=== PATIENT | female | born 1930 | race Caucasian/White ===

== ENCOUNTER 2017-07-08 09:22 | Inpatient (IN) | payer MEDICARE, OTHER ==
[~2017-07-08] VITALS: Ht 165.1 cm; Wt 65.9 kg
--- NOTE | 2017-07-08 09:30 | NUR ---
PT IS IN ROOM #1A. DR PROCTOR EVALUATED THE PT.
[2017-07-08] MEDS ORDERED: SULF1TAB47 PO (09:57)
[2017-07-08] MEDS ORDERED: ERGO2000 PO (09:57)
[2017-07-08] MEDS ORDERED: AZIT250T6 PO (09:57)
[2017-07-08] MEDS ORDERED: SUCR1TAB PO (09:57)
[2017-07-08] MEDS ORDERED: SULF1TAB48 PO (09:57)
[2017-07-08] MEDS ORDERED: TRAZ-144 PO (09:57)
[2017-07-08] MEDS ORDERED: INSU100V10 SQ (09:57)
[2017-07-08] MEDS ORDERED: LOSA25TA3 PO (10:04)
[2017-07-08] MEDS ORDERED: DENO60DI SQ (10:04)
[2017-07-08] MEDS ORDERED: CODE118S2 PO (10:04)
[2017-07-08] MEDS ORDERED: ASPI81TA31 PO (10:04)
[2017-07-08] MEDS ORDERED: ESCI10TA PO (10:04)
[2017-07-08] MEDS ORDERED: ONDA4TAB5 PO (10:04)
[2017-07-08 10:06] LABS: BASOPHILS % (AUTO) 0.1 % (0.0-2.0); EOSINOPHILS % (AUTO) 0.2 % (0.0-7.0); HEMATOCRIT 28.6 % (37-47); HEMOGLOBIN 9.3 G/DL (12.0-16.0); LYMPHOCYTES # (AUTO) 0.7 K/UL (0.8-4.8); LYMPHOCYTES % (AUTO) 25.1 % (20.5-51.5); MEAN CORPUSCULAR HEMOGLOBIN 31.7 UUG (27.0-31.0); MEAN CORPUSCULAR HGB CONC 33 g/dL (32.0-37.0); MEAN CORPUSCULAR VOLUME 97.1 FL (81.0-99.0); MONOCYTES # (AUTO) 0.5 K/UL (0.1-1.30); MONOCYTES % (AUTO) 15.8 % (0.0-11.0); NEUTROPHILS # (AUTO) 1.7 K/UL (1.8-8.9); NEUTROPHILS % (AUTO) 58.8 % (38.5-71.5); PLATELET COUNT (AUTO) 139 K/UL (150-450); RED BLOOD CELL COUNT(AUTO) 2.95 MIL/UL (4.2-5.4); WHITE BLOOD COUNT (AUTO) 2.9 K/UL (4.0-11.2)
[2017-07-08 10:13] LABS: CARBON DIOXIDE 19 mmol/L (21-32); CHLORIDE 98 mmol/L (98-107); CREATININE 1.7 mg/dL (0.6-1.3); GLUCOSE 160 mg/dL (74-106); POTASSIUM 5.1 mmol/L (3.5-5.1); UREA NITROGEN, BLOOD 25 mg/dL (7-18)
--- NOTE | 2017-07-08 10:15 | NUR ---
PT IS RESTING IN BED COMFORTABLY. PT DENIES PAIN. NO SOB. NO N/V. RELATIVES AT THE BEDTIME. CONTINUE TO MONITOR THE PT.
[2017-07-08 10:18] LABS: ALANINE AMINOTRANSFERASE 22 U/L (14-59); ALKALINE PHOSPHATASE 62 U/L (50-136); ASPARTATE AMINOTRANSFERASE 34 U/L (15-37); BILIRUBIN,DIRECT 0.2 mg/dL (0.0-0.2); BILIRUBIN,TOTAL 0.8 mg/dL (0.2-1.0); TOTAL PROTEIN, SERUM 8.4 g/dL (6.4-8.2)
[2017-07-08 10:31] LABS: LYMPHOCYTES % (MANUAL) 25 % (20-40); MONOCYTES % (MANUAL) 14 % (2-10); NEUTROPHILS % (MANUAL) 61 % (42-75)
[2017-07-08 10:50] LABS: *BLOOD, URINE 3+ (NEGATIVE); *CLARITY,URINE TURBID (CLEAR); *COLOR,URINE YELLOW (YELLOW); *KETONES,URINE 1+ (NEGATIVE); *UROBILINOGEN,URINE 0.2 E.U./dl (NORMAL); LEUKOCYTE ESTERASE ,URINE 3+ (NEGATIVE); NITRITE, URINE NEGATIVE (NEGATIVE); UGLUCOSE NEGATIVE (NEGATIVE)
[2017-07-08 10:57] LABS: *BILIRUBIN,URIN NEGATIVE (NEGATIVE)
[2017-07-08 11:00] LABS: *PROTEIN,URINE 3+ (NEGATIVE)
[2017-07-08 11:16] LABS: BACTERIA,URINE MANY /HPF (NONE SEEN); SQUAMOUS EPITHELIAL CELL,UR FEW /HPF (NONE SEEN); WBC,URINE TNTC /HPF (0-3)
[2017-07-08] MEDS ORDERED: PANTOPRAZOLE SODIUM 40 MG VIAL IV ONE (12:00)
[2017-07-08] MEDS ORDERED: IV NORMAL SALINE 250 ML BAG IV ONE (12:00)
[2017-07-08] MEDS ORDERED: IV NS 1000 ML 1,000 ML IV ONE (12:00)
[2017-07-08] MEDS ORDERED: CEFTRIAXONE 1 G in IV DEXTROSE 5% 50 ML IV ONE (12:00)
[2017-07-08] MEDS ORDERED: ASPIRIN 325 MG TABLET PO ONE (12:00)
--- NOTE | 2017-07-08 12:06 | NUR ---
PAGE EPPIC FOR ADMISSION. WAITING FOR KASSANDRA NIELSON DNP TO CALL BACK
[2017-07-08] MEDS ORDERED: CEFTRIAXONE 1 G VIAL ONE (12:14)
[2017-07-08] MEDS ORDERED: PANTOPRAZOLE SODIUM 40 MG VIAL ONE (12:14)
[2017-07-08] MEDS ORDERED: ASPIRIN 325 MG TABLET ONE (12:15)
[2017-07-08] MEDS ORDERED: LEVOFLOXACIN 500 MG/D5W 100ML PIGGYBACK IV ONE (13:45)
[2017-07-08] MEDS ORDERED: LEVOFLOXACIN 500 MG/D5W 100 ML ONE (13:52)
--- NOTE | 2017-07-08 14:00 | NUR ---
PT WAS TRANSFERED TO TELEMETRY ROOM #217. REPORT WAS GIVEN TO ALUMNI COORDINATOR.
--- NOTE | 2017-07-08 14:50 | NUR ---
received from ER per inga awake alert and oriented x 2 for c/o nausea and generalized weakness per granddaughter, tele applied SR 90's, denies of pain, no nausea, routine admission care rendered, initial assessment done, oriented to bed controls and call button controls, fall risk initiated, bed alarm on
[2017-07-08 14:51] VITALS: BP 125/64
--- NOTE | 2017-07-08 16:00 | NUR ---
TO Ct dept for CT of head with granddaughter
[2017-07-08] MEDS ORDERED: ONDANSETRON 4 MG/2 ML VIAL IV PRN (17:00)
[2017-07-08] MEDS ORDERED: ZOLPIDEM 5 MG TABLET PO PRN (17:00)
[2017-07-08] MEDS: ONDANSETRON HCL 4 MG TABLET PO SCH ×2 (17:00→21:51)
[2017-07-08] MEDS ORDERED: Z GUARD REMEDY PASTE 57 GM TUBE TOP PRN (17:00)
[2017-07-08] MEDS ORDERED: MAGNESIUM HYDROXIDE 30 ML LIQUID UDC PO PRN (17:00)
--- NOTE | 2017-07-08 17:26 | NUR ---
CLINICAL PHARMACY NOTE:VANCOMYCIN DOSING Request for vancomycin dosing on 87 y/o female 5'5" 130lbs for suspected infection Temp 99.1 BUN 25 Scr 1.7 WBC 2.9 also receiving Zosyn UA+ Will dose by level due to poor renal function.Vancomycin 1gm ivpb today. Random vancomycin level ordered for tomorrow evening. Will continue to monitor.
--- NOTE | 2017-07-08 17:30 | NUR ---
Lakhwinder here and saw pt- spoke to family at length - Pt for consult width Dr Valle- informed of elevated troponin of 3.111 and will be started on heparin drip per protocol by Kandy Borges- okayed by hooker up Dr Valle.
[2017-07-08] MEDS: IV NS 1000 ML 1,000 ML IV PRN (17:41)
--- NOTE | 2017-07-08 17:50 | NUR ---
critical value of troponin 4.309- reported to Kandy Borges
[2017-07-08] MEDS: SUCRALFATE 1 G TABLET PO SCH ×2 (18:16→21:05)
[2017-07-08] MEDS: PIPERACILLIN/TAZOBACTAM/D5W 2.25 G in PREMIXED 1 EACH IV SCH (18:28)
[2017-07-08] MEDS: HEPARIN/D5W DRIP 500 ML IV PRN (18:40)
--- NOTE | 2017-07-08 18:40 | NUR ---
heparin drip started at 885units/hr (17.7 ml/hr) via iv pump- will monitor closely for any bleeding, no distress noted, call light within reach, tele SR 90's
[2017-07-08 20:00] VITALS: BP 106/54
[2017-07-08] MEDS ORDERED: VANCOMYCIN IV 1 G in PREMIXED 0 EACH IV ONE (20:00)
--- NOTE | 2017-07-08 20:00 | NUR ---
RECEIVED PATIENT ALERT,ORIENTED,ON O2 2L/M VIA N/C,CONTINUE HEPARIN DRIP AT 885 UNITS/HR,FAMILY AT BEDSIDE,DENIES CHEST PAIN.NO NAUSEA NOTED.
[2017-07-08] MEDS: TRAZODONE 50 MG TABLET PO SCH (21:05)
[2017-07-08] MEDS: INSULIN DETEMIR 300 UNIT/3 ML CARTRIDGE SQ SCH (21:10)
[2017-07-08] MEDS: ACETAMINOPHEN 325 MG TABLET PO PRN (21:50)
[2017-07-08] MEDS ORDERED: PIPERACILLIN/TAZOBACTAM/D5W 3.375 G in PREMIXED 1 EACH IV SCH (22:00)
--- NOTE | 2017-07-08 23:00 | NUR ---
TROPONIN 3.747 TRENDING DOWN,PATIENT C/O NAUSEA WHEN BEING TURN,ZOFRAN 4 MG PO GIVEN FOR NAUSEA WITH IMPROVED.
[2017-07-09 00:20] VITALS: BP 109/50
[2017-07-09] MEDS: PIPERACILLIN/TAZOBACTAM/D5W 2.25 G in PREMIXED 1 EACH IV SCH ×5 (00:28→23:14)
--- NOTE | 2017-07-09 01:30 | NUR ---
QBH=804.9,HOLD HEPARIN DRIP FOR 1 HR AND DECREASE DRIP TO 685 PER PROTOCOL.PATIENT SLEEP INTERMITTENTLY,NSR ON TELE MONITOR.
--- NOTE | 2017-07-09 02:30 | NUR ---
restarted heparin drip at 685 units/hr per protocol,patient asleep no s/s of bleeding,nsr on monitor,continue closely monitor.
[2017-07-09 04:00] VITALS: BP 112/52
--- NOTE | 2017-07-09 06:00 | NUR ---
PATIENT SLEEP INTERMITTENTLY,AFEBRILE,NO SOB NOTED,SR ON TELE,CONTINUE HEPARIN DRIP AT 685 UNITS/HR,NEXT PTT DUE AT 0730.
[2017-07-09] MEDS: PANTOPRAZOLE SODIUM 40 MG TABLET.DR PO SCH (06:17)
[2017-07-09 06:49] LABS: ALANINE AMINOTRANSFERASE 20 U/L (14-59); ALKALINE PHOSPHATASE 44 U/L (50-136); ASPARTATE AMINOTRANSFERASE 36 U/L (15-37); BILIRUBIN,TOTAL 0.6 mg/dL (0.2-1.0); CARBON DIOXIDE 18 mmol/L (21-32); CHLORIDE 103 mmol/L (98-107); CHOLESTEROL 115 mg/dL (<200); CREATININE 1.6 mg/dL (0.6-1.3); GLUCOSE 68 mg/dL (74-106); HDL CHOLESTEROL 58 mg/dL (40-60); MAGNESIUM 1.8 mg/dL (1.8-2.4); POTASSIUM 4.4 mmol/L (3.5-5.1); TOTAL PROTEIN, SERUM 6.9 g/dL (6.4-8.2); TRIGLYCERIDES 75 MG/DL (30-150); UREA NITROGEN, BLOOD 26 mg/dL (7-18)
[2017-07-09 06:55] LABS: BASOPHILS % (AUTO) 0.2 % (0.0-2.0); LYMPHOCYTES # (AUTO) 1.5 K/UL (0.8-4.8); LYMPHOCYTES % (AUTO) 44.1 % (20.5-51.5); MEAN CORPUSCULAR HEMOGLOBIN 32.1 UUG (27.0-31.0); MEAN CORPUSCULAR HGB CONC 32 g/dL (32.0-37.0); MEAN CORPUSCULAR VOLUME 99.4 FL (81.0-99.0); MONOCYTES # (AUTO) 0.5 K/UL (0.1-1.30); MONOCYTES % (AUTO) 14.4 % (0.0-11.0); NEUTROPHILS # (AUTO) 1.3 K/UL (1.8-8.9); NEUTROPHILS % (AUTO) 40.3 % (38.5-71.5); PLATELET COUNT (AUTO) 112 K/UL (150-450); WHITE BLOOD COUNT (AUTO) 3.3 K/UL (4.0-11.2)
[2017-07-09 06:57] LABS: HEMATOCRIT 24.8 % (37-47); THYROID STIMULATING HORMONE 1.319 mIU/mL (0.358-3.740)
[2017-07-09] MEDS: SUCRALFATE 1 G TABLET PO SCH ×4 (08:28→20:59)
[2017-07-09] MEDS: ASPIRIN 81 MG TAB.CHEW PO SCH (08:28)
[2017-07-09] MEDS: ONDANSETRON HCL 4 MG TABLET PO SCH ×2 (08:28→17:56)
[2017-07-09] MEDS: ESCITALOPRAM OXALATE 10 MG TABLET PO SCH (08:28)
[2017-07-09] MEDS: LOSARTAN POTASSIUM 25 MG TABLET PO SCH (08:31)
[2017-07-09] MEDS ORDERED: HEPARIN SODIUM,PORCINE 5,000 UNITS/ML VIAL IV PRN (09:00)
--- NOTE | 2017-07-09 09:02 | NUR ---
PT AWAKE IN BED, EATING BREAKFAST. HEP DRIP RUNNING, LAB CAME TO DRAW FOR 0730 PTT, WAITING FOR RESULTS. MORNING MEDICATIONS GIVEN, CALL LIGHT IN REACH, WILL CONTINUE TO MONITOR
--- NOTE | 2017-07-09 09:44 | NUR ---
PTT >150.0. PER PROTOCOL, HEPARIN DRIP WILL BE HELD FOR 60 MIN AND RESUMED AT 200UNITS/HR LOWER THAN PREVIOUS RATE. ANOTHER PTT LAB ORDERED FOR 1530
[2017-07-09] MEDS: HEPARIN/D5W DRIP 500 ML IV PRN (10:47)
--- NOTE | 2017-07-09 12:00 | NUR ---
Lab called gram and cocci cluster in blood cultures. aware.
[2017-07-09 12:07] VITALS: BP 103/47
[2017-07-09] MEDS: IV NS 1000 ML 1,000 ML IV PRN (12:12)
--- NOTE | 2017-07-09 13:57 | NUR ---
Clinical Pharmacy Note: Vancomycin Dosing per Pharmacy Subjective: Vancomycin IV to continue on this 87 yo patient for sepsis, UTI. ht 5' 5'' wt 130 lb Objective: BUN 26/Scr 1.6 WBC 3.3 Temperature 98 Vanco random level : pending (to be drawn at 1800) Assessment/Plan: Due to elevated srcr & advanced age, will continue to dose by fall off level. Patient received vanco 1gm IVPB x1 on 07/08 at 2030. Vanco random level has been scheduled for today at 1800. Pharmacy shall review the level for further dosing. Will follow daily. Addendum: 07/09/17 at 1906 by DOREEN ALFONSO ADM LEVEL CAME BACK @ 11.5 WILL GIVE ANOTHER VANCO 1GM X 1 AND WILL ORDER LEVEL FOR TOMORROW @ 1900
[2017-07-09 15:47] VITALS: BP 107/43
--- NOTE | 2017-07-09 18:17 | NUR ---
PT AWAKE IN BED WATCHING TV, IN NO ACUTE DISTRESS. DAUGHTER AT BEDSIDE. NO CHANGES NOTED THROUGHOUT SHIFT, CALL LIGHT IN REACH
[2017-07-09] MEDS ORDERED: VANCOMYCIN IV 1 G in PREMIXED 0 EACH IV ONE (19:30)
[2017-07-09 20:11] VITALS: BP 112/42
[2017-07-09] MEDS: ATORVASTATIN 20 MG TABLET PO SCH (20:59)
[2017-07-09] MEDS: TRAZODONE 50 MG TABLET PO SCH (20:59)
--- NOTE | 2017-07-09 21:00 | NUR ---
RECEIVED PATIENT LAYING IN BED. HOB ELEVATED. NO ACUTE DISTRESS NOTED. TELE SR. O2 2L NC. SKIN INTACT. SAFETY INITIATED. CALL LIGHT WITHIN REACH. WILL REVIEW MEDICATIONS AND WILL GIVE MEDS ORDERED. WILL CONTINUE TO MONITOR.
[2017-07-09] MEDS: METOPROLOL TARTRATE 25 MG TABLET PO SCH (21:05)
[2017-07-09] MEDS ORDERED: INSULIN DETEMIR 300 UNIT/3 ML CARTRIDGE SQ ONE (22:07)
[2017-07-09] MEDS: INSULIN DETEMIR 300 UNIT/3 ML CARTRIDGE SQ SCH (22:10)
[2017-07-09] MEDS: ACETAMINOPHEN 325 MG TABLET PO PRN (23:14)
[2017-07-10 00:12] VITALS: BP 110/47
[2017-07-10 04:00] VITALS: BP 111/61
[2017-07-10] MEDS: IV NS 1000 ML 1,000 ML IV PRN ×2 (04:59→17:18)
[2017-07-10] MEDS: PIPERACILLIN/TAZOBACTAM/D5W 2.25 G in PREMIXED 1 EACH IV SCH ×3 (05:04→17:18)
[2017-07-10] MEDS: PANTOPRAZOLE SODIUM 40 MG TABLET.DR PO SCH (06:18)
--- NOTE | 2017-07-10 06:44 | NUR ---
NO CHANGES T/O SHIFT. ALL NEEDS MET. NO ACUTE DISTRESS NOTED. TELE SR. ALL MEDS GIVEN ORDERED.TURN AND REPOSITIONED Q2H. FIRST STEP MATTRESS ORDERED. STOOL OBTAINED, SENT TO LAB. ALL NEEDS MET.
--- NOTE | 2017-07-10 06:45 | NUR ---
NO CHANGES T/O SHIFT. ALL NEEDS MET. NO ACUTE DISTRESS NOTED. COMFORT AND SAFETY MAINTAINED T/O SHIFT. SENIOR CARE PROVIDED. ABDUCTOR IN PLACE. DVT PUMPS IN PLACE. NEURO CHECK. STRONG PEDAL PULSES.
--- NOTE | 2017-07-10 07:30 | NUR ---
RESTING IN BED ANXIOUS C/O GENERALIZED DISCOMFORT SR ON MONITOR. CLOSELY MONITORED Addendum: 07/10/17 at 1232 by COURTNEY RDZ RN CHARTED ERROR
--- NOTE | 2017-07-10 07:30 | NUR ---
RESTING COMFORTABLY, NO SIGNS OF PAIN OR DISTRESS, SR ON MONITOR AFEBRILE. NO REACTION FROM IV ANTIBIOTIC
[2017-07-10] MEDS: SUCRALFATE 1 G TABLET PO SCH ×4 (08:22→20:42)
[2017-07-10] MEDS: ESCITALOPRAM OXALATE 10 MG TABLET PO SCH (08:23)
[2017-07-10] MEDS: ASPIRIN 81 MG TAB.CHEW PO SCH (08:23)
[2017-07-10] MEDS: ONDANSETRON HCL 4 MG TABLET PO SCH ×2 (08:23→17:17)
[2017-07-10] MEDS: METOPROLOL TARTRATE 25 MG TABLET PO SCH ×2 (08:23→20:43)
[2017-07-10] MEDS: LOSARTAN POTASSIUM 25 MG TABLET PO SCH (08:23)
[2017-07-10 08:51] LABS: BASOPHILS % (AUTO) 0.3 % (0.0-2.0); EOSINOPHILS % (AUTO) 1.2 % (0.0-7.0); HEMATOCRIT 25.2 % (37-47); HEMOGLOBIN 8.2 G/DL (12.0-16.0); LYMPHOCYTES # (AUTO) 1.1 K/UL (0.8-4.8); MEAN CORPUSCULAR HEMOGLOBIN 32.6 UUG (27.0-31.0); MEAN CORPUSCULAR HGB CONC 33 g/dL (32.0-37.0); MEAN CORPUSCULAR VOLUME 100.3 FL (81.0-99.0); MONOCYTES # (AUTO) 0.4 K/UL (0.1-1.30); MONOCYTES % (AUTO) 14.8 % (0.0-11.0); NEUTROPHILS % (AUTO) 37.7 % (38.5-71.5); PLATELET COUNT (AUTO) 106 K/UL (150-450); RED BLOOD CELL COUNT(AUTO) 2.51 MIL/UL (4.2-5.4); WHITE BLOOD COUNT (AUTO) 2.6 K/UL (4.0-11.2)
[2017-07-10 09:09] LABS: ALANINE AMINOTRANSFERASE 17 U/L (14-59); ALKALINE PHOSPHATASE 39 U/L (50-136); ASPARTATE AMINOTRANSFERASE 33 U/L (15-37); BILIRUBIN,TOTAL 0.4 mg/dL (0.2-1.0); CARBON DIOXIDE 18 mmol/L (21-32); CHLORIDE 108 mmol/L (98-107); CREATINE KINASE, TOTAL 143 U/L (26-192); CREATININE 1.5 mg/dL (0.6-1.3); GLUCOSE 88 mg/dL (74-106); MAGNESIUM 1.7 mg/dL (1.8-2.4); PHOSPHOROUS 2.6 mg/dL (2.5-4.9); POTASSIUM 4.2 mmol/L (3.5-5.1); TOTAL PROTEIN, SERUM 6.8 g/dL (6.4-8.2); UREA NITROGEN, BLOOD 19 mg/dL (7-18)
[2017-07-10 10:33] LABS: BAND % (MANUAL) 1 % (0-10); EOSINOPHILS % (MANUAL) 2 % (0-8); LYMPHOCYTES % (MANUAL) 49 % (20-40); MONOCYTES % (MANUAL) 8 % (2-10); NEUTROPHILS % (MANUAL) 40 % (42-75)
[2017-07-10 11:21] VITALS: BP 107/55
[2017-07-10 11:47] LABS: *OCCULT BLOOD STOOL NEGATIVE (NEGATIVE)
--- NOTE | 2017-07-10 12:29 | NUR ---
DENIES SOB OR CHEST PAIN, SR ON MONITOR
[2017-07-10 15:18] VITALS: BP 113/48
--- NOTE | 2017-07-10 15:36 | NUR ---
Clinical Pharmacy Note: Vancomycin Dosing per Pharmacy Subjective: Vancomycin IV to continue on this 87 yo patient for sepsis, UTI. ht 5' 5'' wt 130 lb Objective: BUN 19/Scr 1.5 WBC 2.6 Temperature 98 Vanco random level : pending (to be drawn at 1900) Assessment/Plan: Due to elevated srcr & advanced age, will continue to dose by fall off level. Patient received vanco 1gm IVPB x1 on 07/09 at 1999. Vanco random level has been scheduled for today at 1900. Pharmacy shall review the level for further dosing. Will follow daily. Addendum: 07/10/17 at 2102 by QIAN BALDERAS RANDOM LEVEL 18.8 GIVE 1GM VANCOMYCIN SAMUEL
[2017-07-10 15:51] LABS: *BILIRUBIN,URIN NEGATIVE (NEGATIVE); *BLOOD, URINE Trace-lysed (NEGATIVE); *CLARITY,URINE CLEAR (CLEAR); *COLOR,URINE YELLOW (YELLOW); *KETONES,URINE NEGATIVE (NEGATIVE); *PROTEIN,URINE TRACE (NEGATIVE); *UROBILINOGEN,URINE 0.2 E.U./dl (NORMAL); LEUKOCYTE ESTERASE ,URINE TRACE (NEGATIVE); NITRITE, URINE NEGATIVE (NEGATIVE); PH,URINE 5.5 (5.0-8.0); UGLUCOSE NEGATIVE (NEGATIVE)
[2017-07-10 16:16] LABS: *CREATININE,URINE 44.1 mg/dL (30-125); *URINE TOTAL PROTEIN RANDOM 28.6 mg/dL (<150/24HR)
[2017-07-10 16:37] LABS: BACTERIA,URINE FEW /HPF (NONE SEEN); RBC,URINE 0-3 /HPF (0-3); SQUAMOUS EPITHELIAL CELL,UR FEW /HPF (NONE SEEN)
--- NOTE | 2017-07-10 18:02 | NUR ---
CONTINUE IVF AND IV ANTIBIOTIC FOR UTI NO ADVERSE REACTION
--- NOTE | 2017-07-10 19:30 | NUR ---
RECEIVED PATIENT LAYING COMFORTABLY IN BED. NO ACUTE DISTRESS NOTED. SAFETY INITIATED. CALL LIGHT WITHIN REACH. IVF INFUSING AT 75 MS/HR ON THE RIGHT HAND. 02 2L NC. TELE SR. WILL CONTINUE TO MONITOR.
[2017-07-10 20:00] VITALS: BP 120/51
[2017-07-10] MEDS: LACTOBACILLUS RHAMNOSUS GG 1 EACH CAPSULE PO SCH (20:42)
[2017-07-10] MEDS: TRAZODONE 50 MG TABLET PO SCH (20:42)
[2017-07-10] MEDS: ATORVASTATIN 20 MG TABLET PO SCH (20:42)
[2017-07-10] MEDS: INSULIN DETEMIR 300 UNIT/3 ML CARTRIDGE SQ SCH (20:51)
[2017-07-10] MEDS ORDERED: VANCOMYCIN IV 1 G in PREMIXED 0 EACH IV ONE (21:00)
[2017-07-10] MEDS ORDERED: VANCOMYCIN 1000 MG VIAL ONE (21:43)
--- NOTE | 2017-07-10 22:22 | NUR ---
VANCOMYCIN WAS GIVEN LATE BECAUSE ORDERED WAS PUT IN PASS 2100, PHARMACY IS CLOSE. FAXED ORDER TO NURSING OFFICE. NURSING OFFICE BROUGHT IT UP 2200. INFUSING NOW. NO ADVERSE REACTION.
[2017-07-11] VITALS: BP 117/47
[2017-07-11] MEDS: PIPERACILLIN/TAZOBACTAM/D5W 2.25 G in PREMIXED 1 EACH IV SCH ×3 (01:11→11:57)
[2017-07-11 04:00] VITALS: BP 128/48
[2017-07-11] MEDS: PANTOPRAZOLE SODIUM 40 MG TABLET.DR PO SCH (06:03)
--- NOTE | 2017-07-11 06:38 | NUR ---
NO CHANGES T/O THE SHIFT. NO ACUTE DISTRESS NOTED. PATIENT SLEPT INTERMITTENTLY T/O SHIFT. O2 2L NC. TURN AND REPOSITIONED Q2H. ALERT AND ORIENTED BUT FORGETFUL. IV HL ON THE RIGHT HAD PATENT AND INTACT.ALL NEEDS MET. TELE SR WITH PVC COUPLETS.WILL CONTINUE TO MONITOR.
--- NOTE | 2017-07-11 07:30 | NUR ---
RESTING IN BED WITH EYES CLOSED NO SIGNS OF PAIN OR DISTRESS WITH 2L NC SAT AT 96% SR ON MONITOR
[2017-07-11] MEDS: ASPIRIN 81 MG TAB.CHEW PO SCH (08:17)
[2017-07-11] MEDS: LACTOBACILLUS RHAMNOSUS GG 1 EACH CAPSULE PO SCH ×2 (08:18→20:45)
[2017-07-11] MEDS: ESCITALOPRAM OXALATE 10 MG TABLET PO SCH (08:18)
[2017-07-11] MEDS: CARVEDILOL 3.125 MG TABLET PO SCH ×2 (08:18→17:12)
[2017-07-11] MEDS: SUCRALFATE 1 G TABLET PO SCH ×4 (08:18→20:45)
[2017-07-11] MEDS: ONDANSETRON HCL 4 MG TABLET PO SCH ×2 (08:18→17:12)
[2017-07-11] MEDS: LOSARTAN POTASSIUM 25 MG TABLET PO SCH (08:18)
--- NOTE | 2017-07-11 10:00 | NUR ---
SEEN BY PHYSICAL THERAPY SEE NOTES
[2017-07-11 11:26] LABS: HEMATOCRIT 25.3 % (37-47); HEMOGLOBIN 8.4 G/DL (12.0-16.0); MEAN CORPUSCULAR HGB CONC 34 g/dL (32.0-37.0); MEAN CORPUSCULAR VOLUME 98.5 FL (81.0-99.0); PLATELET COUNT (AUTO) 96 K/UL (150-450); RED BLOOD CELL COUNT(AUTO) 2.56 MIL/UL (4.2-5.4); WHITE BLOOD COUNT (AUTO) 2.9 K/UL (4.0-11.2)
[2017-07-11 11:41] VITALS: BP 114/57
[2017-07-11 11:53] LABS: CARBON DIOXIDE 15 mmol/L (21-32); CHLORIDE 109 mmol/L (98-107); CREATININE 1.3 mg/dL (0.6-1.3); GLUCOSE 191 mg/dL (74-106); MAGNESIUM 1.6 mg/dL (1.8-2.4); PHOSPHOROUS 1.7 mg/dL (2.5-4.9); UREA NITROGEN, BLOOD 12 mg/dL (7-18)
[2017-07-11] MEDS: MAGNESIUM SULFATE/D5W 100 ML IV SCH ×4 (12:38→16:06)
[2017-07-11 13:12] LABS: LYMPHOCYTES % (MANUAL) 44 % (20-40); MONOCYTES % (MANUAL) 4 % (2-10); NEUTROPHILS % (MANUAL) 52 % (42-75)
--- NOTE | 2017-07-11 13:16 | NUR ---
CONTINUE CURRENT TX PLAN, SEEN BY DR JORDAN CHANGED STATUS TO MEDS[facility]
[2017-07-11] MEDS ORDERED: NEUTRA PHOS PACKET PO ONE (15:30)
[2017-07-11 15:36] VITALS: BP 107/54
--- NOTE | 2017-07-11 18:13 | NUR ---
DC PLAN INITIATED FOR ACUTE REHAB
[2017-07-11 19:00] VITALS: BP 97/66
--- NOTE | 2017-07-11 19:30 | NUR ---
received patient laying comfortably in bed. family at bedside. patient is alert and oriented but forgetful. no acute distress noted. 02 2l nc. patient is bed bound. air mattress in place. will review meds and will administer as ordered. safety initiated. call light with reach. will continue to monitor.
[2017-07-11 20:00] VITALS: BP 128/54
[2017-07-11] MEDS: TRAZODONE 50 MG TABLET PO SCH (20:45)
[2017-07-11] MEDS: ATORVASTATIN 20 MG TABLET PO SCH (20:45)
[2017-07-11] MEDS: INSULIN DETEMIR 300 UNIT/3 ML CARTRIDGE SQ SCH (20:47)
--- NOTE | 2017-07-11 22:40 | NUR ---
LAB PERSONNEL INFORMED ME OF TROP LEVEL 0.552. ORDER WAS PLACED BUT WAS NOT RAN UNTIL NOW. RELEASING IT.
[2017-07-11] MEDS: CEFAZOLIN 1 G in PREMIXED 1 EACH IV SCH (22:48)
[2017-07-12] VITALS (12 sets, daily range): BP systolic 115–138; BP diastolic 52–74
--- NOTE | 2017-07-12 00:15 | NUR ---
CONDUCTED MY HOURLY ROUNDING AND FOUND PATIENT IN DISTRESS. C/O SOB. BP WAS WNL, O2 AT 97 ON 2L NC, HR ELEVATED AT 101, RESP WAS ELEVATED AT 36 WITH LABORED BREATHING. ALERTED CHARGE NURSE DARREN, CALLED RT AND PAGED ON-CALL MD DR. VELEZ. SBAR GIVEN OVER THE PHONE WITH DR. VELEZ. ORDERED 10 MG LASIX IVP ONCE. READ BACK PROTOCOL FOLLOWED. PATIENT WAS PUT BACK ON TELE. WILL CONTINUE TO MONITOR. NO IVF INFUSING.
[2017-07-12] MEDS ORDERED: FUROSEMIDE 20 MG/2 ML VIAL IV ONE (00:30)
--- NOTE | 2017-07-12 00:32 | NUR ---
GAVE LASIX 10 MG IVP. CONTINUE TO MONITOR.
[2017-07-12] MEDS ORDERED: FUROSEMIDE 20 MG/2 ML VIAL ONE (00:39)
--- NOTE | 2017-07-12 02:00 | NUR ---
VSS PATIENT BACK TO BASELINE
[2017-07-12 04:06] LABS: A/G RATIO 1.1 (0.7-1.7); ALBUMIN 3.2 g/dL (2.9-4.4); ALPHA-1-GLOBULIN 0.2 g/dL (0.0-0.4); ALPHA-2-GLOBULIN 0.7 g/dL (0.4-1.0); BETA GLOBULIN 0.9 g/dL (0.7-1.3); GAMMA GLOBULIN 1.1 g/dL (0.4-1.8); M-SPIKE Not Observed g/dL (Not Observed)
[2017-07-12] MEDS: CEFAZOLIN 1 G in PREMIXED 1 EACH IV SCH ×3 (05:04→21:03)
[2017-07-12] MEDS: ACETAMINOPHEN 325 MG TABLET PO PRN (05:04)
[2017-07-12] MEDS: PANTOPRAZOLE SODIUM 40 MG TABLET.DR PO SCH (06:20)
[2017-07-12 06:29] LABS: ALANINE AMINOTRANSFERASE 15 U/L (14-59); ALKALINE PHOSPHATASE 42 U/L (50-136); ASPARTATE AMINOTRANSFERASE 22 U/L (15-37); BILIRUBIN,TOTAL 0.4 mg/dL (0.2-1.0); CARBON DIOXIDE 17 mmol/L (21-32); CHLORIDE 108 mmol/L (98-107); CREATININE 1.4 mg/dL (0.6-1.3); GLUCOSE 270 mg/dL (74-106); MAGNESIUM 2.7 mg/dL (1.8-2.4); PHOSPHOROUS 1.5 mg/dL (2.5-4.9); POTASSIUM 3.7 mmol/L (3.5-5.1); TOTAL PROTEIN, SERUM 6.9 g/dL (6.4-8.2); UREA NITROGEN, BLOOD 11 mg/dL (7-18)
--- NOTE | 2017-07-12 06:29 | NUR ---
PATIENT SLEPT INTERMITTENTLY T/O THE NIGHT. PATIENT C/O SOB AROUND 0015. MD AWARE, ORDERED EXECUTED. PATIENT IS NOW SOUND ASLEEP AND IN BASELINE WITH CONTINUOS PULSE OX AT BEDSIDE. O2 REMAINS > 95%. O2 2L NC. BLADDER SCAN READ 63 ML. TELE SR (FOR SAFETY). WILL CONTINUE TO MONITOR.
[2017-07-12 06:36] LABS: HEMOGLOBIN 7.8 G/DL (12.0-16.0); MEAN CORPUSCULAR HEMOGLOBIN 32.5 UUG (27.0-31.0); MEAN CORPUSCULAR HGB CONC 33 g/dL (32.0-37.0); MEAN CORPUSCULAR VOLUME 99.2 FL (81.0-99.0); PLATELET COUNT (AUTO) 84 K/UL (150-450); WHITE BLOOD COUNT (AUTO) 3.8 K/UL (4.0-11.2)
[2017-07-12 06:41] LABS: HEMATOCRIT 23.9 % (37-47); RED BLOOD CELL COUNT(AUTO) 2.41 MIL/UL (4.2-5.4)
--- NOTE | 2017-07-12 08:00 | NUR ---
resting in bed awake very weak, kept head of bed elevated, made comfortable, denies of pain, fed by RUG RECEIVING CLERK, aspiration precaution observed, on 2l/nc, with sat of 97%, call light within reach width bed alarm on, on first step mattress
[2017-07-12] MEDS: LOSARTAN POTASSIUM 25 MG TABLET PO SCH (08:24)
[2017-07-12] MEDS: ONDANSETRON HCL 4 MG TABLET PO SCH ×2 (08:24→17:33)
[2017-07-12] MEDS: SUCRALFATE 1 G TABLET PO SCH ×5 (08:24→20:11)
[2017-07-12] MEDS: ESCITALOPRAM OXALATE 10 MG TABLET PO SCH (08:24)
[2017-07-12] MEDS: LACTOBACILLUS RHAMNOSUS GG 1 EACH CAPSULE PO SCH ×2 (08:24→20:11)
[2017-07-12] MEDS: CARVEDILOL 3.125 MG TABLET PO SCH ×2 (08:25→17:32)
[2017-07-12] MEDS: ASPIRIN 81 MG TAB.CHEW PO SCH (08:25)
[2017-07-12] MEDS ORDERED: NEUTRA PHOS PACKET PO ONE (09:30)
[2017-07-12] MEDS ORDERED: FUROSEMIDE 20 MG/2 ML VIAL IV PRN (09:30)
[2017-07-12 09:52] LABS: LYMPHOCYTES % (MANUAL) 47 % (20-40); MONOCYTES % (MANUAL) 3 % (2-10); NEUTROPHILS % (MANUAL) 50 % (42-75)
--- NOTE | 2017-07-12 10:35 | NUR ---
dozing but keeps eyes closed when name is called, repositioned and slight verbally responded, goes back to sleep, caregiver at bedside, remains on 2l/nc with sat of 99%, BP 115/61, HR 88,called Dr Bueno and informed of Blood g/s results :gram positive cocci in clusters.
--- NOTE | 2017-07-12 12:45 | NUR ---
still very groggy, BS checked- 358, informed DR parmar, repeated on a different finger- BS 329, accucheck ac/hs with mild sliding scale ordered- covered with 8 units of regular insulin SQ, will continue to monitor
[2017-07-12] MEDS ORDERED: DEXTROSE 50% 50 ML DISP.SYRIN IV PRN (13:00)
[2017-07-12] MEDS: BLOOD SUGAR DIAGNOSTIC 1 EACH STRIP VI SCH ×3 (13:02→20:11)
[2017-07-12] MEDS: INSULIN REGULAR, HUMAN 300 UNIT/3 ML VIAL SQ PRN ×3 (13:04→20:39)
--- NOTE | 2017-07-12 14:15 | NUR ---
awake alert- family at bedside, lunch given, aspiration precaution observed
[2017-07-12] MEDS ORDERED: FUROSEMIDE 40 MG/4 ML VIAL IV ONE (15:30)
--- NOTE | 2017-07-12 15:56 | NUR ---
unit of PRBC started - vs wnl- will monitor closely for any reactions
--- NOTE | 2017-07-12 16:10 | NUR ---
blood infusing well without any reaction, continue to monitor
--- NOTE | 2017-07-12 17:00 | NUR ---
blood infusing well, no rashes noted, vss, family at bedside
--- NOTE | 2017-07-12 18:15 | NUR ---
more awake and verbally responsive, incontinent of small fromed stool- sent to lab for OB, repositioned and readied for dinner, aspiration precaution observed, remains on 2l /cl with sat at 98%, all needs a attended and met, no distress noted
--- NOTE | 2017-07-12 18:30 | NUR ---
blood transfusion completed, no reaction noted, vs wnl, no distress noted, lasix 20 mg ivp given as ordered, all needs attended, safety and comfort measures maintained
[2017-07-12 19:55] LABS: *OCCULT BLOOD STOOL POSITIVE (NEGATIVE)
[2017-07-12] MEDS: ATORVASTATIN 20 MG TABLET PO SCH (20:11)
[2017-07-12] MEDS: TRAZODONE 50 MG TABLET PO SCH (20:11)
[2017-07-12] MEDS ORDERED: INSULIN DETEMIR 300 UNIT/3 ML CARTRIDGE SQ SCH (22:30)
[2017-07-12] MEDS ORDERED: ALBUTEROL SULFATE 2.5 MG/3 ML NEBU NEB PRN (22:45)
[2017-07-13] MEDS: CEFAZOLIN 1 G in PREMIXED 1 EACH IV SCH ×2 (05:05→13:40)
[2017-07-13 05:17] VITALS: BP 151/74
--- NOTE | 2017-07-13 05:56 | NUR ---
PT SLEPT WELL, IN NO RESPIRATORY DISTRESS. PT SATURATING 98%-100% ON 2L VIA NC. OCCASIONAL PRODUCTIVE COUGH NOTED. PT KEPT CLEAN/DRY, REPOSITIONED FOR COMFORT. ACCUCHECKS ORDERED. IV ANTIBIOTICS GIVEN ORDERED, NO ADVERSE REACTION NOTED. BED ALARM ON, WILL CONTINUE TO MONITOR.
[2017-07-13] MEDS: PANTOPRAZOLE SODIUM 40 MG TABLET.DR PO SCH (06:00)
[2017-07-13] MEDS: BLOOD SUGAR DIAGNOSTIC 1 EACH STRIP VI SCH ×2 (06:30→11:28)
[2017-07-13 07:06] LABS: ALANINE AMINOTRANSFERASE 15 U/L (14-59); ALKALINE PHOSPHATASE 52 U/L (50-136); ASPARTATE AMINOTRANSFERASE 22 U/L (15-37); BILIRUBIN,TOTAL 0.6 mg/dL (0.2-1.0); CARBON DIOXIDE 23 mmol/L (21-32); CHLORIDE 105 mmol/L (98-107); CREATININE 1.5 mg/dL (0.6-1.3); MAGNESIUM 1.7 mg/dL (1.8-2.4); PHOSPHOROUS 2.8 mg/dL (2.5-4.9); POTASSIUM 3.5 mmol/L (3.5-5.1); TOTAL PROTEIN, SERUM 6.9 g/dL (6.4-8.2); UREA NITROGEN, BLOOD 24 mg/dL (7-18)
[2017-07-13 07:08] LABS: HEMATOCRIT 27.1 % (37-47); HEMOGLOBIN 9.1 G/DL (12.0-16.0); MEAN CORPUSCULAR HEMOGLOBIN 32.1 UUG (27.0-31.0); MEAN CORPUSCULAR HGB CONC 34 g/dL (32.0-37.0); MEAN CORPUSCULAR VOLUME 95.2 FL (81.0-99.0); PLATELET COUNT (AUTO) 95 K/UL (150-450); RED BLOOD CELL COUNT(AUTO) 2.85 MIL/UL (4.2-5.4); WHITE BLOOD COUNT (AUTO) 4.7 K/UL (4.0-11.2)
[2017-07-13 07:21] LABS: GLUCOSE 341 mg/dL (74-106)
--- NOTE | 2017-07-13 07:45 | NUR ---
Sleeping, comfortable. O2 at 2L/NC, on moderate high back rest
[2017-07-13 08:26] LABS: LYMPHOCYTES % (MANUAL) 40 % (20-40); MONOCYTES % (MANUAL) 7 % (2-10); NEUTROPHILS % (MANUAL) 53 % (42-75)
[2017-07-13] MEDS: SUCRALFATE 1 G TABLET PO SCH ×2 (08:54→13:40)
[2017-07-13] MEDS: ASPIRIN 81 MG TAB.CHEW PO SCH (08:54)
[2017-07-13] MEDS: LOSARTAN POTASSIUM 25 MG TABLET PO SCH (08:54)
[2017-07-13] MEDS: CARVEDILOL 3.125 MG TABLET PO SCH (08:54)
[2017-07-13] MEDS: ESCITALOPRAM OXALATE 10 MG TABLET PO SCH (08:54)
[2017-07-13] MEDS: LACTOBACILLUS RHAMNOSUS GG 1 EACH CAPSULE PO SCH (08:54)
[2017-07-13] MEDS: ONDANSETRON HCL 4 MG TABLET PO SCH (08:55)
[2017-07-13] MEDS: INSULIN REGULAR, HUMAN 300 UNIT/3 ML VIAL SQ PRN ×2 (08:57→11:30)
[2017-07-13] MEDS ORDERED: POTASSIUM CHLORIDE 20 MEQ TAB.PRT.SR PO ONE (09:15)
[2017-07-13] MEDS ORDERED: MAGNESIUM SULFATE/D5W 100 ML IV SCH (09:15)
[2017-07-13] MEDS ORDERED: FUROSEMIDE 20 MG/2 ML VIAL IV ONE (10:00)
[2017-07-13] MEDS ORDERED: POTASSIUM CHLORIDE 20 MEQ POWDER PACKET PO ONE (10:00)
[2017-07-13 11:12] VITALS: BP 143/74
--- NOTE | 2017-07-13 12:00 | NUR ---
BG 315; Dr. Wadsworth informed of elevated BG >300
[2017-07-13] MEDS ORDERED: INSU100V28 SQ (12:34)
[2017-07-13] MEDS ORDERED: ALBU2.5V7 NEB (12:34)
[2017-07-13] MEDS ORDERED: Blood Sugar Diagnostic VI (12:34)
[2017-07-13] MEDS ORDERED: LACT1CAP57 PO (12:34)
[2017-07-13] MEDS ORDERED: MENT71OI TOP (12:34)
[2017-07-13] MEDS ORDERED: ACET325T53 PO (12:34)
[2017-07-13] MEDS ORDERED: PANT40TA2 PO (12:34)
[2017-07-13] MEDS ORDERED: DEXT50DI8 IV (12:34)
[2017-07-13] MEDS ORDERED: ATOR20TA PO (12:34)
[2017-07-13] MEDS ORDERED: INSU100I19 SQ (12:34)
[2017-07-13] MEDS ORDERED: CARV3.122 PO (12:34)
[2017-07-13] MEDS ORDERED: LEVO500T2 PO (12:34)
[2017-07-13 15:07] VITALS: BP 122/54
--- NOTE | 2017-07-13 15:38 | NUR ---
With discharge order to ARU. Report given to Nilo. Saline lock removed. Midline RUE intact and patent. Caregiver at bedside, informed. Discharged per wheelchair in fair condition, not in distress, afebrile..
== END 2017-07-13 15:45 | DRG 871 ==
LOC: ER 09:32 → TELE 14:19 → TELE-TD 07-11 15:31 → MED 07-11 16:12
PROVIDERS: ADMIT Nurse Practitioner Acute Care; ATTEND Nurse Practitioner Acute Care
PROC: 30233N1 Transfusion of Nonautologous Red Blood Cells into Peripheral Vein, Percutaneous Approach (ICD-10-PCS; principal; 2017-07-12)
PROC: 05H533Z Insertion of Infusion Device into Right Subclavian Vein, Percutaneous Approach (ICD-10-PCS; 2017-07-12)
DX: A41.9 Sepsis, unspecified organism (principal); N17.0 Acute kidney failure with tubular necrosis; I21.4 Non-ST elevation (NSTEMI) myocardial infarction; I50.23 Acute on chronic systolic (congestive) heart failure; G92 Toxic encephalopathy; D46.9 Myelodysplastic syndrome, unspecified; K21.9 Gastro-esophageal reflux disease without esophagitis; N39.0 Urinary tract infection, site not specified; I13.0 Hypertensive heart and chronic kidney disease with heart failure and stage 1 through stage 4 chronic kidney disease, or unspecified chronic kidney disease; D61.818 Other pancytopenia; E87.1 Hypo-osmolality and hyponatremia; E87.2 Acidosis; R65.20 Severe sepsis without septic shock; B96.1 Klebsiella pneumoniae [K. pneumoniae] as the cause of diseases classified elsewhere; B96.89 Other specified bacterial agents as the cause of diseases classified elsewhere; Z16.11 Resistance to penicillins; Z16.29 Resistance to other single specified antibiotic; I25.2 Old myocardial infarction; E11.22 Type 2 diabetes mellitus with diabetic chronic kidney disease; N18.9 Chronic kidney disease, unspecified; Z79.4 Long term (current) use of insulin; Z87.440 Personal history of urinary (tract) infections; Z74.01 Bed confinement status; I25.10 Atherosclerotic heart disease of native coronary artery without angina pectoris; D63.8 Anemia in other chronic diseases classified elsewhere; E55.9 Vitamin D deficiency, unspecified; E83.42 Hypomagnesemia; E88.09 Other disorders of plasma-protein metabolism, not elsewhere classified; F03.90 Unspecified dementia, unspecified severity, without behavioral disturbance, psychotic disturbance, mood disturbance, and anxiety; I25.5 Ischemic cardiomyopathy; Z79.82 Long term (current) use of aspirin; R79.1 Abnormal coagulation profile; Z90.49 Acquired absence of other specified parts of digestive tract; Z96.641 Presence of right artificial hip joint; Z79.899 Other long term (current) drug therapy
CPT/HCPCS: 36415; 36569; 70030-TC; 70450; 71010; 76770; 83605; 83735; 83970; 84100; 84155; 84156; 84165; 84300; 84443; 85025; 85730; 86850; 86900; 86901; 86920; 87040; 87077; 87086; 92523; 93005; 93307; 97110; 97530; A4663; C1758; C9113; J0690; J0696; J1644; J1815; J1940; J1956; J2543; J3370; J3475; J3490; J7030; J7050; J7060; P9016-BL; P9021; Q0162

== ENCOUNTER 2017-07-13 14:39 | Inpatient (IN) | payer MEDICARE, OTHER ==
[~2017-07-13] VITALS: Ht 157.5 cm; Wt 60.8 kg
[~2017-07-13 14:39] MED LIST: ACET325T53 PO; ALBU2.5V7 NEB; ASPI81TA31 PO; ATOR20TA PO; AZIT250T6 PO; Blood Sugar Diagnostic VI; CARV3.122 PO; CODE118S2 PO; DENO60DI SQ; DEXT50DI8 IV; ERGO2000 PO; ESCI10TA PO; INSU100I19 SQ; INSU100V10 SQ; INSU100V28 SQ; LACT1CAP57 PO; LEVO500T2 PO; LOSA25TA3 PO; MENT71OI TOP; ONDA4TAB5 PO; PANT40TA2 PO; SUCR1TAB PO; SULF1TAB48 PO; TRAZ-144 PO
--- NOTE | 2017-07-13 17:59 | NUR ---
pt giovanni travis arrived at 1535 from [facility] floor. pt was transferred on use of wheelchair. pt is on 02 ns and applied. all vital signs taken. vitals stable. no signs of acute distress. all pertinent assessments done. temp 97.8 pulse 74 rr 16 bp 105/96. pt has left and right arm bruises. redness on buttocks. all pictures taken and put to chart. no signs of chest pain. no signs of edema. pt is on puree diet and was given dinner. all history received from family. home meds done and sent to pharmacy. [facility] pharmacy wants dr higginbotham to do med recon. will follow up with pharmacy Addendum: 07/13/17 at 1817 by ZACH KULKARNI RN mrsa swab done. pt on scd pumps. bed on semi folwers position with legs raised.
[2017-07-13 18:31] VITALS: BP 128/61
[2017-07-13 19:54] VITALS: BP 104/51
--- NOTE | 2017-07-14 06:40 | NUR ---
AAOX2-3 with periods of confusion. Follow simple commands. Speaks mainly Bruneian. Grandson at bedside at beginning of shift. Tolerated po meds well, crush with applesauce. Blood suagr @ 2100 266, insulin given. Repositioned for comfort. Turned q2hrs. Incontinent of urine and BMx3. Kept clean and dry. Needs attended. Kept comfortable. Will monitor patient. Slept well throughout the night. Blood suagr @ 0630 88. Right upper midline heplock intact. I
[2017-07-14 08:37] LABS: CARBON DIOXIDE 26 mmol/L (21-32); CHLORIDE 107 mmol/L (98-107); CHOLESTEROL 88 mg/dL (<200); CREATININE 1.5 mg/dL (0.6-1.3); GLUCOSE 86 mg/dL (74-106); HDL CHOLESTEROL 42 mg/dL (40-60); MAGNESIUM 1.8 mg/dL (1.8-2.4); PHOSPHOROUS 2.8 mg/dL (2.5-4.9); POTASSIUM 3.4 mmol/L (3.5-5.1); TRIGLYCERIDES 71 MG/DL (30-150); UREA NITROGEN, BLOOD 38 mg/dL (7-18)
--- NOTE | 2017-07-14 08:40 | NUR ---
Received patient awake, alert x3. Able to make needs known to granddaughter. Was able to feed self with minimum assistance. No complaints of pain at the moment. With non-productive cough, Dr. Izquierdo made known.
[2017-07-14 08:42] LABS: HEMATOCRIT 25.3 % (37-47); HEMOGLOBIN 8.6 G/DL (12.0-16.0); MEAN CORPUSCULAR HEMOGLOBIN 32.2 UUG (27.0-31.0); MEAN CORPUSCULAR HGB CONC 34 g/dL (32.0-37.0); MEAN CORPUSCULAR VOLUME 95.1 FL (81.0-99.0); PLATELET COUNT (AUTO) 114 K/UL (150-450); RED BLOOD CELL COUNT(AUTO) 2.66 MIL/UL (4.2-5.4); WHITE BLOOD COUNT (AUTO) 4.6 K/UL (4.0-11.2)
[2017-07-14 09:50] LABS: BAND % (MANUAL) 6 % (0-10); BASOPHILS % (MANUAL) 1 % (0-2); EOSINOPHILS % (MANUAL) 1 % (0-8); LYMPHOCYTES % (MANUAL) 41 % (20-40); METAMYELOCYTES % 2 % (0-1); MONOCYTES % (MANUAL) 25 % (2-10); NEUTROPHILS % (MANUAL) 24 % (42-75)
[2017-07-14 11:09] VITALS: BP 115/59
--- NOTE | 2017-07-14 12:51 | NUR ---
Up with physical therapy for evaluation. Tolerated lunch, with minimum assist. With family at bedside.
--- NOTE | 2017-07-14 16:32 | NUR ---
Tolerated therapy well. Still waiting for air mattress, will follow up. O2 Sat at 99% in Room air for almost 2 hours. No complaints of discomfort.
[2017-07-14 19:57] VITALS: BP 103/46
--- NOTE | 2017-07-14 20:00 | NUR ---
Breathing even and unlabored with normal respirations. O2 95% RA.
--- NOTE | 2017-07-14 20:00 | NUR ---
Received pt on bed alert and awake. Family at bedside during this time. No acute distress noted. No complaints of pain. Air mattress was put on. All due meds given with apple sauce, tolerated well. Accu check done, 193 mg/dl. Regular insulin given as per sliding scale. Kept clean, dry and comfortable. Call light within reach. Bed alarm on. All needs attended. Will continue to monitor.
--- NOTE | 2017-07-15 01:15 | NUR ---
Patient had episodes of coughing. PRN cough medicine given. O2 sat 96% RA. No SOB. Will continue to monitor.
--- NOTE | 2017-07-15 03:21 | NUR ---
Patient still has episodes of coughing. Head of bed elevated. Called RT for breathing treatment. Checked vital signs, BP 108/54, HR 86, RR 20, o2 sat 97% RA. Midline on JOE intact and patent. No acute distress noted. Will continue to monitor.
[2017-07-15 03:28] VITALS: BP 108/54
--- NOTE | 2017-07-15 06:51 | NUR ---
Patient slept well, had some episodes of coughing but was relieved with the PRN breathing treatment and cough medications. No SOB. Denies pain. Accu check done, 81 mg/dl. No signs/symptoms of hypo/hyperglycemia noted. kept clean, dry and comfortable. All needs attended.
[2017-07-15 07:27] VITALS: BP 99/47
--- NOTE | 2017-07-15 07:52 | NUR ---
Received patient awake and alert. Intact Midline on right fore arm. Air mattress in place. Not in any form of distress, no complaints of pain. On room air with O2 Sat at 98%. No SOB noted. BP of 99/47. AK-88. Asymptomatic. No complaints of dizziness. Held Coreg and Carvedilol for now
--- NOTE | 2017-07-15 13:15 | NUR ---
Up with occupational therapy. Tolerated therapy well. No complaints of discomfort at the moment.
--- NOTE | 2017-07-15 18:00 | NUR ---
Still with productive cough. PRN cough medications given. With right upper quadrant abdominal pain, Dr. Izquierdo informed.
[2017-07-15 20:29] VITALS: BP 107/51
[2017-07-15 23:48] LABS: *OCCULT BLOOD STOOL POSITIVE (NEGATIVE)
--- NOTE | 2017-07-16 06:34 | NUR ---
PT STI.LL COUGHING GIVEN COUGH SYRUPX1 SLEPT WELL OVERNIGHT,HAD X2 LIQUID DARK STOOL, SPECIMEN SENT TO LAB AND RESULTED POSITIVE OB, LABS ORDERED THIS MORNING, KEPT CLEAN AND DRY, REPOSITIONED, AIR MATTRESS AND BED ALARM ACTIVE.VSS,AFEBRILE, NO SIGNIFICANT CHANGES OVERNIGHT.
[2017-07-16 07:30] VITALS: BP 126/67
--- NOTE | 2017-07-16 17:55 | NUR ---
patient participated with therapy as scheduled - tolerating well. still on air mattress for skin management.
[2017-07-16 20:20] VITALS: BP 99/45
[2017-07-16 21:05] VITALS: BP 99/45
[2017-07-17 06:41] LABS: ALANINE AMINOTRANSFERASE 12 U/L (14-59); ALKALINE PHOSPHATASE 42 U/L (50-136); ASPARTATE AMINOTRANSFERASE 17 U/L (15-37); BILIRUBIN,TOTAL 0.5 mg/dL (0.2-1.0); CARBON DIOXIDE 26 mmol/L (21-32); CHLORIDE 104 mmol/L (98-107); CREATININE 1.5 mg/dL (0.6-1.3); GLUCOSE 127 mg/dL (74-106); MAGNESIUM 1.9 mg/dL (1.8-2.4); PHOSPHOROUS 5.1 mg/dL (2.5-4.9); POTASSIUM 4.4 mmol/L (3.5-5.1); TOTAL PROTEIN, SERUM 6.7 g/dL (6.4-8.2); UREA NITROGEN, BLOOD 46 mg/dL (7-18)
[2017-07-17 07:18] LABS: BASOPHILS % (AUTO) 0.1 % (0.0-2.0); HEMATOCRIT 24.4 % (37-47); HEMOGLOBIN 8.2 G/DL (12.0-16.0); LYMPHOCYTES # (AUTO) 1.3 K/UL (0.8-4.8); LYMPHOCYTES % (AUTO) 42.9 % (20.5-51.5); MEAN CORPUSCULAR HEMOGLOBIN 32.1 UUG (27.0-31.0); MEAN CORPUSCULAR HGB CONC 34 g/dL (32.0-37.0); MEAN CORPUSCULAR VOLUME 95.8 FL (81.0-99.0); MONOCYTES # (AUTO) 1.1 K/UL (0.1-1.30); MONOCYTES % (AUTO) 34.6 % (0.0-11.0); NEUTROPHILS # (AUTO) 0.7 K/UL (1.8-8.9); NEUTROPHILS % (AUTO) 21.4 % (38.5-71.5); PLATELET COUNT (AUTO) 148 K/UL (150-450); RED BLOOD CELL COUNT(AUTO) 2.54 MIL/UL (4.2-5.4); WHITE BLOOD COUNT (AUTO) 3.1 K/UL (4.0-11.2)
[2017-07-17 07:20] VITALS: BP 101/74
[2017-07-17 10:07] LABS: BAND % (MANUAL) 1 % (0-10); LYMPHOCYTES % (MANUAL) 44 % (20-40); MONOCYTES % (MANUAL) 40 % (2-10); NEUTROPHILS % (MANUAL) 15 % (42-75)
--- NOTE | 2017-07-17 16:11 | NUR ---
Trouble Locater Bio: SW met with patient and daughterAna at bedside to assess for needs and provide support. Patient is a an 87-year-old (Swedish speaking) female admitted to ARU for functional decline and impaired mobility. Daughter reported the pt has a long hx of medical issues that have required multiple surgeries. Per daughter, the pt had two falls while being in a previous rehabilitation center and during physical therapy while at home. Daughter reported the pt has been bed bound for 8 months now. She also reports that the pt has no motivation to walk since she has a fear of falling again. Per daughter, the pt is responding well to physical therapy while in ARU. Psych: Per pt's daughter, the pt has no hx of mental health issues. However, she reported she may have symptoms of depression as she tends to forget things. Pt was alert and oriented to place and time only. She was oriented to current date, as she thought it was the 2nd. Pt reported she is feeling "not good" because she cannot walk. Social: Pt has a strong support system. Per daughter, the pt lives at home with her and has a caregiver. Pt reported that she has two other adult children who live in [place]. Goal: Pt did not report a goal at this time. SS: SW engaged in active listening. SW provided emotional support and supportive counseling. SW will provide linkage to community resources. SW will encourage and motivate pt to comply with rehab goals in order to overcome fear of falling. SW will be available as needed.
--- NOTE | 2017-07-17 19:30 | NUR ---
RECEIVED PATIENT AWAKE, ALERT, AND ORIENTED TO NAME AND SOMETIMES PLACE, WHEN SPEAKING IN TOGOLESE TO DAUGHTER WHO IS AT BEDSIDE. REORIENTED FREQUENTLY. NO C/O RESPIRATORY DISTRESS OR DISCOMFORT. EUPNEIC WITH HOB AT 40 DEGREES. CONGESTED COUGH BUT SEEMS TO SWALLOW SPUTUM. REPOSITIONED TO SIDE FOR COMFORT. PM SNACK AND MEDS GIVEN CRUSHED WITH APPLE SAUCE WITHOUT SIGNS OF ASPIRATION. CALL LIGHT WITHIN REACH AND BED ALARM ON AAT. SCD'S BILATERALLY ON
[2017-07-17 20:30] VITALS: BP 104/48
--- NOTE | 2017-07-18 06:00 | NUR ---
SLEPT WELL LAST NIGHT. PASSIVE WITH HER CARE. INCONTINENT OF URINE AND STOOL IN DIAPERS. KEPT CLEAN AND DRY. VSS. JOE MIDLINE SALINE LOCK FLUSHED WITH NORMAL SALINE WITHOUT DIFFICULTY. GOOD BLOOD RETURN. APPEARS COMFORTABLE IN NO APPARENT DISTRESS. CALL LIGHT WITHIN REACH. BED ALARM ON
--- NOTE | 2017-07-18 08:00 | NUR ---
Received patient, awake and alert. No complaints of pain or discomfort at the moment.With intact midline over over right upper arm.
[2017-07-18 08:29] VITALS: BP 118/49
--- NOTE | 2017-07-18 09:00 | NUR ---
Patient up with occupational therapy. Able to tolerate food and medications well.
--- NOTE | 2017-07-18 09:30 | NUR ---
Facial droop apparent on left side. NIHSS score-11. Patient alert and awake, no changes in mental status and able to follow commands. With decreased sensation over left side of upper arm. Rapid response called. Code stojumana called. Laboratory, Respiratory, Radiology, conservation coordinator, Harsha, Textiles And Clothing Teacher Khoa present during Rapid response. EKG done, CT scan done, blood drawn. Accu check done, blood sugar of 139. With orders from Dr. Cano and Dr. Freire informed with orders to transfer patient to higher level of care.
[2017-07-18 09:48] LABS: HEMATOCRIT 25.4 % (37-47); HEMOGLOBIN 8.3 G/DL (12.0-16.0); MEAN CORPUSCULAR HEMOGLOBIN 31.7 UUG (27.0-31.0); MEAN CORPUSCULAR HGB CONC 33 g/dL (32.0-37.0); PLATELET COUNT (AUTO) 173 K/UL (150-450); RED BLOOD CELL COUNT(AUTO) 2.62 MIL/UL (4.2-5.4); WHITE BLOOD COUNT (AUTO) 3.4 K/UL (4.0-11.2)
--- NOTE | 2017-07-18 10:00 | NUR ---
Transferred patient to emergency department, accompanied by caregiver via hospital bed.
[2017-07-18 10:07] LABS: BAND % (MANUAL) 1 % (0-10); EOSINOPHILS % (MANUAL) 3 % (0-8); LYMPHOCYTES % (MANUAL) 42 % (20-40); MONOCYTES % (MANUAL) 23 % (2-10); NEUTROPHILS % (MANUAL) 31 % (42-75)
[2017-07-18 10:24] LABS: CARBON DIOXIDE 26 mmol/L (21-32); CHLORIDE 105 mmol/L (98-107); CREATININE 1.3 mg/dL (0.6-1.3); GLUCOSE 161 mg/dL (74-106); POTASSIUM 4.2 mmol/L (3.5-5.1); UREA NITROGEN, BLOOD 42 mg/dL (7-18)
[2017-07-18 10:30] VITALS: BP 106/49
--- NOTE | 2017-07-20 16:43 | NUR ---
TRANSFER NOTE RECEIVED FROM MED SURG. IN NO ACUTE DISTRESS. VSS . FAMILY IN ROOM WITH PT. INTRODUCED TO ROOM AND SURROUNDINGS AND HOW TO USE EQUIPMENT
[2017-07-20 20:00] VITALS: BP 107/57
--- NOTE | 2017-07-20 20:20 | NUR ---
PT'S ON BED REST COMFORTABLY,DRY COUGH SOMETIMES,NO SOB NOTED;WITH PT'S GRANDSON AT THE BEDSIDE;EDUCATED TO PT AND FAMILY DUE TO FALL PREVENTION;THEY VERBALIZED UNDERSTANDING AND COOPERATIVE NOTED.KEPT COMFORT.SCD TO BLE MD'S ORDER.CONTINUED MONITORING TO PT.
--- NOTE | 2017-07-20 21:15 | NUR ---
ASSISTED PT FOR PM CARE AND REPOSITION ON BED,NIGHT MEDICATION'S GIVEN TO PT;EDUCATED AND TRANSLATED BY SHAGUFTA/PHILLIP;PT VERBALIZED UNDERSTANDING,ASPIRATION PRECAUTION TO PT;PT TOLERATED WELL,NO SOB NOTED.KEPT COMFORT.MIDLINE'S FLUSHED FREELY AT THIS TIME NOTED.BED ALARM'S ON.CALL-LIGHT WITHIN REACH.
--- NOTE | 2017-07-21 01:45 | NUR ---
CALLED [employer] AND LEFT THE MESSAGE WITH EXCHANGE SERVICE FOR WHO'S PLASTIC PANEL INSTALLER FOR TONIGHT DUE TO PT ASKED FOR COUGH MEDICATION FOR THE THIRD TIME CALLING,ZACH/CHARGE NURSE'S NOTIFIED AND AWARE,NURSING RECTIFIER OPERATOR'S NOTIFIED AND FELDMAN ABOUT THE INCIDENT.ASSISTED PT TO REPOSITION,KEPT COMFORT;PT TOLERATED WELL WITH ASSISTANCE;DENIED OF PAIN STILL DRY COUGH SOMETIMES,NO SOB NOTED.CONTINUED MONITORING TO PT. AT 02:00:NATTI/CHARGE NURSE CAME TO ARU AND CALLED [employer] AND DISCUSSED W/THE PROBLEM,LEFT THE MESSAGE TO W/[employer] FOR ADDITIONAL TIME.
--- NOTE | 2017-07-21 02:45 | NUR ---
ASSISTED PT TO CHANGE DIAPER DUE TO URINATION;PERINEAL CARE;PT STATED THAT"I WANT TO GO TO SLEEP";NO SOB NOTED.ASSISTED TO REPOSITION AFTER PERINEAL CARE.KEPT COMFORT.BED ALARM'S ON.
--- NOTE | 2017-07-21 02:55 | NUR ---
CALLED BACK AT THIS TIME;NEEW ORDER'S GIVEN:CARRIED IT OUT.APPLIED O2 NC 2 LPM TO PT PT REQUESTED(O2 SAT'S 92%:ROOM AIR).CONTINUED MONITORING TO PT.BED ALARM'S ON.
--- NOTE | 2017-07-21 06:05 | NUR ---
ASSISTED PT FOR AM,SKIN CARE ON BED;EDUCATED TO PT AND TRANSLATED BY SHAGUFTA/PHILLIP;PT VERBALIZED UNDERSTANDING AND COOPERATIVE,PT STATED THAT SHE FELT COMFORTABLE WHILE SHE'S ON O2 NC 2LPM,STILL DRY COUGH SOMETIMES ON/OFF BUT NO SOB'S SEEN.SCD TO BLE.BED ALARM'S ON.NO DISTRESS NOTED IN THE SHIFT.
[2017-07-21 08:48] VITALS: BP 139/49
[2017-07-21 20:11] VITALS: BP 138/57
--- NOTE | 2017-07-22 05:25 | NUR ---
Caregiver left at 1999. Pt speaks Panamanian, able to understand little [place] Islander. Denies pain or discomfort. sleeping well. No cough heard tonight. No acute distress. continue to monitor.
[2017-07-22 06:49] LABS: CARBON DIOXIDE 31 mmol/L (21-32); CHLORIDE 106 mmol/L (98-107); CREATININE 1.2 mg/dL (0.6-1.3); GLUCOSE 112 mg/dL (74-106); POTASSIUM 4.7 mmol/L (3.5-5.1); UREA NITROGEN, BLOOD 33 mg/dL (7-18)
[2017-07-22 07:11] LABS: HEMOGLOBIN 10.8 G/DL (12.0-16.0); MEAN CORPUSCULAR HEMOGLOBIN 31.6 UUG (27.0-31.0); MEAN CORPUSCULAR HGB CONC 33 g/dL (32.0-37.0); MEAN CORPUSCULAR VOLUME 95.9 FL (81.0-99.0); PLATELET COUNT (AUTO) 186 K/UL (150-450); WHITE BLOOD COUNT (AUTO) 3.6 K/UL (4.0-11.2)
[2017-07-22 07:17] LABS: HEMATOCRIT 32.7 % (37-47); RED BLOOD CELL COUNT(AUTO) 3.41 MIL/UL (4.2-5.4)
[2017-07-22 07:20] VITALS: BP 137/70
[2017-07-22 07:30] LABS: BAND % (MANUAL) 2 % (0-10); EOSINOPHILS % (MANUAL) 1 % (0-8); LYMPHOCYTES % (MANUAL) 32 % (20-40); METAMYELOCYTES % 1 % (0-1); MONOCYTES % (MANUAL) 22 % (2-10); NEUTROPHILS % (MANUAL) 42 % (42-75)
--- NOTE | 2017-07-22 08:00 | NUR ---
Received patient from [facility] shift, awake and alert. No complaints of pain or discomfort at the moment.With intact midline over over right upper arm.
--- NOTE | 2017-07-22 18:00 | NUR ---
status stable at this time, son at the bedside. no s/s of any acute distress noted at this time. will endorse to noc shift to follow up with continuity of care
[2017-07-22 20:00] VITALS: BP 113/62
--- NOTE | 2017-07-22 20:00 | NUR ---
PT ALERT AND ORIENTED IN BED. NO DISTRESS NOTED. BS 231. COVERAGE WILL BE GIVEN ORDERED. O2 2L NC IN PLACE. O2 SAT WNL. FAMILY AT BEDSIDE. COMPLIANT WITH NURSING CARE. CLEAN AND DRY. TURNED AND REPOSITIONED. SAFETY MAINTAINED. CALL LIGHT WITHIN REACH. WILL CONTINUE TO MONITOR.
--- NOTE | 2017-07-23 06:52 | NUR ---
PT RESTING IN BED. NO DISTRESS NOTED. BS 119. NO COVERAGE NEEDED. CLEAN AND DRY. TURNED AND REPOSITIONED. HOB ELEVATED. SAFETY MAINTAINED. CALL LIGHT WITHIN REACH.
[2017-07-23 07:10] VITALS: BP 139/78
--- NOTE | 2017-07-23 19:30 | NUR ---
PT ALERT AND ORIENTED IN BED. NO DISTRESS NOTED. MIDLINE INTACT. O2 2L NC IN PLACE. FAMILY AT BEDSIDE. CLEAN AND DRY. TURNED AND REPOSITIONED. SAFETY MAINTAINED. CALL LIGHT WITHIN REACH.
[2017-07-23 20:13] VITALS: BP 146/59
--- NOTE | 2017-07-24 06:55 | NUR ---
PT RESTING IN BED. NO DISTRESS NOTED. BS 125. NO COVERAGE NEEDED. O2 2L NC, O2 SAT WNL. MIDLINE INTACT AND PATENT. SLEPT WELL THROUGHOUT THE NIGHT. CLEAN AND DRY. TURNED AND REPOSITIONED Q2 HOURS. SAFETY MAINTAINED. CALL LIGHT WITHIN REACH.
--- NOTE | 2017-07-24 16:35 | NUR ---
Found the pt inside room with JOE midline pulled out. MD made aware and notified. Addendum: 07/24/17 at 1725 by ANGIE BRADFORD RN stated that pt doesn't need a new midline at this time.
[2017-07-24 19:59] VITALS: BP 132/56
--- NOTE | 2017-07-25 06:00 | NUR ---
Patient rested well, had large soft BM today. Incontinence care provided. Attended w/ all needs.
--- NOTE | 2017-07-25 07:45 | NUR ---
Pt. A/A/Ox1, eating breakfast,no s/s of distress,denies pain.caregiver at bedside.
[2017-07-25 08:00] VITALS: BP 140/62
--- NOTE | 2017-07-25 14:38 | NUR ---
Rehab Team Conference 07/25/17
--- NOTE | 2017-07-25 18:00 | NUR ---
Pt.eating dinner,good appetite,watching TV,denies pain @ time.family at bedside.
[2017-07-25 20:00] VITALS: BP 105/51
--- NOTE | 2017-07-25 21:00 | NUR ---
Resting quietly no distress noted or voiced
--- NOTE | 2017-07-26 05:36 | NUR ---
Slept entire night,turned patient every 2 hrs. no distress noted or voiced.
[2017-07-26 08:00] VITALS: BP 107/47
--- NOTE | 2017-07-26 19:20 | NUR ---
RECEIVED PATIENT IN BED, NO SOB NO CHEST PAIN, NO COMPLAIN OF PAIN AT THIS TIME, NO S/S OF HYPO/HYPERGLYCEMIA NOTED, KEPT CLEAN AND DRY, TURN AND REPOSITION, CALL LIGHT WITHIN REACH, SITTER AT BEDSIDE.
[2017-07-26 20:00] VITALS: BP 100/59
--- NOTE | 2017-07-27 06:44 | NUR ---
PATIENT SLEPT MOST OF THE NIGHT, NO SOB NO CHEST PAIN, NO COMPLAIN OF PAIN, NO S/S OF HYPO/HYPERGLYCEMIA NOTED, KEPT CLEAN AND DRY. CALL LIGHT WITHIN REACH. TURN AND REPOSITION.
[2017-07-27 08:00] VITALS: BP 123/59
--- NOTE | 2017-07-27 08:00 | NUR ---
received patient a/o times 2 mostly gibraltarian speaking and understands little sinhala with daughter at bedside, pt has been up participating in therapies in am and to room in afternoon, family at bedside .oral intake qs with pureed diet no s/s of swallow problems. continue to monitor for safety and comfort. call light in reach with side rails up times two
--- NOTE | 2017-07-27 19:25 | NUR ---
RECEIVED PATIENT IN BED, ALERT, AWAKE, NO SOB NO CHEST PAIN NOTED, NO S/S OF HYPO/HYPERGYLCEMIA NOTED, NO COMPLAIN OF PAIN NOTED, SITTER AT BEDSIDE, KEPT CLEAN AND DRY.
[2017-07-27 20:20] VITALS: BP 112/56
--- NOTE | 2017-07-28 06:53 | NUR ---
PATIENT SLEPT MOST OF THE NIGHT, NO SOB NO CHEST PAIN NOTED, DENIES DISCOMFORT AT THIS TIME, KEPT CLEAN AND DRY, TURN AND REPOSITION, NO S/S OF HYPO/HYPERGYLCEMIA NOTED, ON 2LITER NC FOR ASSIST, OXYGEN SAT WNL, GRANDDAUGHTER CAME TO SEE THE PATIENT EARLIER TO VISIT THE PATIENT, AND HAS SOME REQUEST FROM MD. WILL ENDORSE TO MORNING STAFF.
[2017-07-28 09:17] VITALS: BP 128/61
--- NOTE | 2017-07-28 10:54 | NUR ---
Notified Dr. Johnston who is in the unit regarding family's concern and MD ordered CBC.
[2017-07-28 13:06] LABS: HEMATOCRIT 29.2 % (37-47); HEMOGLOBIN 9.6 G/DL (12.0-16.0); MEAN CORPUSCULAR HEMOGLOBIN 31.7 UUG (27.0-31.0); MEAN CORPUSCULAR HGB CONC 33 g/dL (32.0-37.0); MEAN CORPUSCULAR VOLUME 95.9 FL (81.0-99.0); WHITE BLOOD COUNT (AUTO) 3.7 K/UL (4.0-11.2)
[2017-07-28 13:32] LABS: PLATELET COUNT (AUTO) 134 K/UL (150-450); RED BLOOD CELL COUNT(AUTO) 3.04 MIL/UL (4.2-5.4)
[2017-07-28 13:53] LABS: BAND % (MANUAL) 3 % (0-10); EOSINOPHILS % (MANUAL) 2 % (0-8); LYMPHOCYTES % (MANUAL) 38 % (20-40); METAMYELOCYTES % 2 % (0-1); MONOCYTES % (MANUAL) 18 % (2-10); NEUTROPHILS % (MANUAL) 37 % (42-75)
--- NOTE | 2017-07-28 17:45 | NUR ---
Informed Dr. Johnston regarding CBC result with no new order.
--- NOTE | 2017-07-28 19:10 | NUR ---
RECEIVED PATIENT IN BED, AWAKE, VERBALLY RESPONSIVE, NO SOB NO CHEST PAIN NOTED, KEPT CLEAN DRY AND COMFORTABLE, TURN AND REPOSITION, KEPT CLEAN AND DRY.
[2017-07-28 20:53] VITALS: BP 105/48
--- NOTE | 2017-07-29 00:32 | NUR ---
PATIENT WITH REDNESS ON LORE AREAS, NOTIFY MD WITH ORDER Z GUARD EVERY SHIFT AND NEEDED.
--- NOTE | 2017-07-29 05:34 | NUR ---
PATIENT SLEPT MOST OF THE NIGHT, NO SOB NO CHEST PAIN NOTED, WITH EPISODES OF NON PRODUCTIVE COUGH, KEPT HOB ELEVATED, NO S/S OF HYPO/HYPERGLYCEMIA NOTED, TURN AND REPOSITION, KEPT CLEAN AND DRY. CALL LIGHT WITHIN REACH.
[2017-07-29 07:10] VITALS: BP 128/65
--- NOTE | 2017-07-29 07:30 | NUR ---
Report received.Pt remains awake,alert.Filipino speaking only.Pt granddaughter and caregiver at bedside,translating.Pt denies pain,discomfort.No SOB noted.Pt noted with new excoriated area at perianal area.partial bath was given,Zguarg cream applied.Will continue to monitor.
--- NOTE | 2017-07-30 07:09 | NUR ---
pt slept well overnight,denies any pain ,repositioned q2hrs,kept room air overnight with spo2 96%, fingerstick this morning is 59-62mg/dl, given orange juice 1 cup and fingerstick rechecked is 103mg/dl.kept attended,vss,afebrile, no bm incontinent of bladder.
[2017-07-30 07:10] VITALS: BP 126/63
--- NOTE | 2017-07-30 07:30 | NUR ---
Pt received in bed, sleeping, easy to arouse, no respiratory distress noted. On O2 via NC at 2L, Resp even and unlabored, Latest Blood sugar 103 per report. Bed kept low/locked position, Call light and personal belongings at the bed side. Plan of care discussed.
[2017-07-30 08:46] VITALS: BP 120/63
--- NOTE | 2017-07-30 11:33 | NUR ---
Accu check Blood sugar 150
--- NOTE | 2017-07-30 14:50 | NUR ---
Discharge to home received from Dr. Mark. Daughter Ana was made aware, and in agreement. medication reconciliation provided. Skin photos taken.
--- NOTE | 2017-07-30 16:39 | NUR ---
Blood sugar 142, no insulin given. Addendum: 07/30/17 at 1739 by REED SANTIAGO RN 2 units of regular insulin given per sliding scale.
--- NOTE | 2017-07-30 17:39 | NUR ---
Pt Discharge home with daughter via private car. No acute distress noted. Exit care instructions provided to daughter, verbalize understanding. Personal belongings taken with daughter. Addendum: 07/30/17 at 1743 by REED SANTIAGO RN Pt had dinner prior to discharge.
== END 2017-07-30 17:00 | disposition home or self-care (01) | DRG 871 ==
LOC: UNDODISIN 07-18 10:00
PROVIDERS: ADMIT Physical Medicine & Rehabilitation Pain Medicine; ATTEND Physical Medicine & Rehabilitation Pain Medicine
DX: A41.9 Sepsis, unspecified organism (principal); G92 Toxic encephalopathy; N17.0 Acute kidney failure with tubular necrosis; D61.818 Other pancytopenia; D68.59 Other primary thrombophilia; E11.65 Type 2 diabetes mellitus with hyperglycemia; N39.0 Urinary tract infection, site not specified; I50.42 Chronic combined systolic (congestive) and diastolic (congestive) heart failure; G45.9 Transient cerebral ischemic attack, unspecified; R65.20 Severe sepsis without septic shock; I11.0 Hypertensive heart disease with heart failure; E88.09 Other disorders of plasma-protein metabolism, not elsewhere classified; D46.9 Myelodysplastic syndrome, unspecified; B96.1 Klebsiella pneumoniae [K. pneumoniae] as the cause of diseases classified elsewhere; F03.90 Unspecified dementia, unspecified severity, without behavioral disturbance, psychotic disturbance, mood disturbance, and anxiety; K21.9 Gastro-esophageal reflux disease without esophagitis; I25.10 Atherosclerotic heart disease of native coronary artery without angina pectoris; I25.2 Old myocardial infarction; R26.9 Unspecified abnormalities of gait and mobility; R79.89 Other specified abnormal findings of blood chemistry; R47.02 Dysphasia; D63.8 Anemia in other chronic diseases classified elsewhere; R09.82 Postnasal drip; Z87.440 Personal history of urinary (tract) infections; G47.00 Insomnia, unspecified; Z96.641 Presence of right artificial hip joint; Z90.49 Acquired absence of other specified parts of digestive tract; E87.8 Other disorders of electrolyte and fluid balance, not elsewhere classified
CPT/HCPCS: 36415; 70030-TC; 70450; 71010; 83735; 84100; 85025; 85730; 86850; 86900; 86901; 92526; 92610; 93005; 94664; 97110; 97112; 97116; 97165; 97530; 97535; J1815; J3535; Q0162

== ENCOUNTER 2017-07-18 10:11 | Inpatient (IN) | payer MEDICARE, OTHER ==
[~2017-07-18] VITALS: Ht 152.4 cm; Wt 70.8 kg
[~2017-07-18 10:11] MED LIST changes: -AZIT250T6 PO; -CODE118S2 PO; -DENO60DI SQ; -DEXT50DI8 IV; -ERGO2000 PO; -INSU100V10 SQ; -INSU100V28 SQ; -SULF1TAB48 PO
--- NOTE | 2017-07-18 10:35 | NUR ---
PATIENT WAS BROUGHT TO ER FROM REHAB DUE TO POSSIBLE STROKE SYMPTOMS. DR NAVARRO EVALUATED PATIENT. PATIENT IS AWAKE, ALERT, ORIENTED X4 IN NO DISTRESS. SHE IS ABLE TO MOVE AND FEEL ALL 4 EXTREMITIES. SMILE IS SYMETRICAL AND SHE IS ABLE TO MOVE HER TONGUE IN ALL 4 DIRECTIONS. DENIES HEADACHE. BP WNL. PER DR NAVARRO, SHE IS TO BE ADMITTED TO TELE. FAMILY AWARE, THEY ARE AT BEDSIDE.
--- NOTE | 2017-07-18 11:11 | NUR ---
REPORT GIVEN TO JULIA YANG. PT IS AWAKE AND ALERT WITH NO NEW COMPLAINTS
[2017-07-18] MEDS ORDERED: BLOOD SUGAR DIAGNOSTIC 1 EACH STRIP VI SCH ×2 (11:30→12:00)
[2017-07-18 11:38] LABS: THYROID STIMULATING HORMONE 1.224 mIU/mL (0.358-3.740)
--- NOTE | 2017-07-18 11:40 | NUR ---
1140 PT ADMITTED FROM ARU VIA ER WITH COMPLAINT OF FACIAL WEAKNESS. DX TIA. PT IS AWAKE, ALERT UPON ARRIVAL ON THE FLOOR. V/S TAKEN, NO S/S OF DISTRESS NOTED AT THIS TIME. SR ON MONITOR. MADE AWARE.
[2017-07-18 11:58] VITALS: BP 124/51
[2017-07-18 12:16] LABS: CARBON DIOXIDE 24 mmol/L (21-32); CHLORIDE 105 mmol/L (98-107); CREATININE 1.3 mg/dL (0.6-1.3); GLUCOSE 155 mg/dL (74-106); POTASSIUM 4.2 mmol/L (3.5-5.1); UREA NITROGEN, BLOOD 42 mg/dL (7-18)
[2017-07-18 12:28] LABS: ALANINE AMINOTRANSFERASE 15 U/L (14-59); ALKALINE PHOSPHATASE 42 U/L (50-136); ASPARTATE AMINOTRANSFERASE 23 U/L (15-37); BILIRUBIN,TOTAL 0.6 mg/dL (0.2-1.0); CHOLESTEROL 87 mg/dL (<200); HDL CHOLESTEROL 36 mg/dL (40-60); TOTAL PROTEIN, SERUM 6.5 g/dL (6.4-8.2); TRIGLYCERIDES 55 MG/DL (30-150)
[2017-07-18 13:06] LABS: BASOPHILS % (AUTO) 0.4 % (0.0-2.0); EOSINOPHILS % (AUTO) 0.8 % (0.0-7.0); HEMATOCRIT 24.5 % (37-47); LYMPHOCYTES # (AUTO) 0.9 K/UL (0.8-4.8); LYMPHOCYTES % (AUTO) 27.5 % (20.5-51.5); MEAN CORPUSCULAR HEMOGLOBIN 31.5 UUG (27.0-31.0); MEAN CORPUSCULAR HGB CONC 33 g/dL (32.0-37.0); MEAN CORPUSCULAR VOLUME 96.5 FL (81.0-99.0); MONOCYTES # (AUTO) 0.8 K/UL (0.1-1.30); MONOCYTES % (AUTO) 26.5 % (0.0-11.0); NEUTROPHILS # (AUTO) 1.5 K/UL (1.8-8.9); NEUTROPHILS % (AUTO) 44.8 % (38.5-71.5); PLATELET COUNT (AUTO) 170 K/UL (150-450); RED BLOOD CELL COUNT(AUTO) 2.54 MIL/UL (4.2-5.4); WHITE BLOOD COUNT (AUTO) 3.2 K/UL (4.0-11.2)
[2017-07-18] MEDS: SUCRALFATE 1 G TABLET PO SCH ×3 (13:15→21:04)
[2017-07-18 13:19] LABS: LYMPHOCYTES % (MANUAL) 30 % (20-40); MONOCYTES % (MANUAL) 30 % (2-10); NEUTROPHILS % (MANUAL) 40 % (42-75)
[2017-07-18] MEDS ORDERED: DEXTROSE 50% 50 ML DISP.SYRIN IV PRN (14:30)
[2017-07-18 15:40] VITALS: BP 131/61
[2017-07-18] MEDS: BLOOD SUGAR DIAGNOSTIC 1 EACH STRIP VI SCH ×2 (16:46→21:05)
[2017-07-18] MEDS: INSULIN REGULAR, HUMAN 300 UNIT/3 ML VIAL SQ PRN ×2 (16:52→21:05)
[2017-07-18] MEDS: ONDANSETRON HCL 4 MG TABLET PO SCH (16:53)
[2017-07-18] MEDS: TRAZODONE 50 MG TABLET PO SCH (17:15)
--- NOTE | 2017-07-18 17:41 | NUR ---
PT AWAKE, SITING COMFORTABLY IN BED. NO CHANGES NOTED FROM ORIGINAL ASSESSMENT, REMAINS ALERT, AND TOLERATING DIET. SR MAINTAINED. WILL START PT AND OT IN AM ORDERED. FAMILY AT BEDSIDE PROVIDING SUPPORTIVE CARE.
[2017-07-18 19:00] VITALS: BP 119/40
[2017-07-18] MEDS: SIMVASTATIN 10 MG TABLET PO SCH (21:04)
[2017-07-18 21:55] LABS: *BILIRUBIN,URIN NEGATIVE (NEGATIVE); *BLOOD, URINE 2+ (NEGATIVE); *COLOR,URINE YELLOW (YELLOW); *KETONES,URINE NEGATIVE (NEGATIVE); *PROTEIN,URINE 2+ (NEGATIVE); *UROBILINOGEN,URINE 0.2 E.U./dl (NORMAL); LEUKOCYTE ESTERASE ,URINE NEGATIVE (NEGATIVE); NITRITE, URINE NEGATIVE (NEGATIVE); PH,URINE 5.5 (5.0-8.0); UGLUCOSE NEGATIVE (NEGATIVE)
[2017-07-18 22:04] LABS: *AMPHETAMINE, URINE NEGATIVE (NEGATIVE); *BARBITURATE, URINE NEGATIVE (NEGATIVE); *CANNABINOID, URINE NEGATIVE (NEGATIVE); *COCCAINE, URINE NEGATIVE (NEGATIVE); *OPIATE, URINE NEGATIVE (NEGATIVE); *PHENCYCLIDINE SCREEN,URINE NEGATIVE (NEGATIVE)
[2017-07-18 22:14] LABS: *CLARITY,URINE HAZY (CLEAR)
[2017-07-18 22:15] LABS: SQUAMOUS EPITHELIAL CELL,UR FEW /HPF (NONE SEEN); URINE AMORPHOUS URATE MODERATE /HPF; WBC,URINE 0-3 /HPF (0-3)
[2017-07-19] VITALS (9 sets, daily range): BP systolic 108–126; BP diastolic 46–59
--- NOTE | 2017-07-19 04:41 | NUR ---
RECEIVED PATIENT AWAKE IN BED WITH RELATIVE AT BEDSIDE. ALERT AND ORIENTED X3. RIGHT ARM MIDLINE IN PLACED. NIHSS DONE BY RN ELLIOTT WITH NO SIGNIFICANT CHANGE ONLY, NOTED RIGHT LOWER LEG WEAKNESS BUT ABLE TO MOVE. BILATERAL SENSATION PRESENT. PATIENT'S GRAND DAUGHTER CAME OVER LAST NIGHT. UA SENT TO LAB WITH RESULTS NOTED. HIGH TROPONIN RESULTS NOTED TO DOCTOR CONTROL ENGINEER LAST NIGHT AT AROUND 2130 HRS.
[2017-07-19 05:42] LABS: HEMOGLOBIN 7.8 G/DL (12.0-16.0)
[2017-07-19 05:45] LABS: BASOPHILS % (AUTO) 0.2 % (0.0-2.0); EOSINOPHILS % (AUTO) 1.1 % (0.0-7.0); LYMPHOCYTES # (AUTO) 1.2 K/UL (0.8-4.8); LYMPHOCYTES % (AUTO) 38.6 % (20.5-51.5); MEAN CORPUSCULAR HEMOGLOBIN 32.2 UUG (27.0-31.0); MEAN CORPUSCULAR HGB CONC 34 g/dL (32.0-37.0); MEAN CORPUSCULAR VOLUME 96.1 FL (81.0-99.0); MONOCYTES # (AUTO) 0.8 K/UL (0.1-1.30); MONOCYTES % (AUTO) 26.5 % (0.0-11.0); NEUTROPHILS % (AUTO) 33.6 % (38.5-71.5); PLATELET COUNT (AUTO) 179 K/UL (150-450)
[2017-07-19 05:52] LABS: CARBON DIOXIDE 29 mmol/L (21-32); CHLORIDE 106 mmol/L (98-107); CREATININE 1.4 mg/dL (0.6-1.3); GLUCOSE 130 mg/dL (74-106); POTASSIUM 4.6 mmol/L (3.5-5.1); UREA NITROGEN, BLOOD 39 mg/dL (7-18)
[2017-07-19 05:53] LABS: HEMATOCRIT 23.3 % (37-47); RED BLOOD CELL COUNT(AUTO) 2.43 MIL/UL (4.2-5.4)
[2017-07-19 06:03] LABS: EOSINOPHILS % (MANUAL) 1 % (0-8); LYMPHOCYTES % (MANUAL) 42 % (20-40); MONOCYTES % (MANUAL) 23 % (2-10); NEUTROPHILS % (MANUAL) 34 % (42-75)
--- NOTE | 2017-07-19 06:45 | NUR ---
CALLED DR. NIELSON ABOUT CRITICAL HGB RESULT OF 7.8 MG/DL, TOLD THE POCKET MARKER NO INTERVENTION AT THIS TIME.
[2017-07-19] MEDS: BLOOD SUGAR DIAGNOSTIC 1 EACH STRIP VI SCH ×4 (06:48→21:16)
--- NOTE | 2017-07-19 07:57 | NUR ---
RESTING , AROUSABLE AND VERBALLY RESPONSIVE, SR ON MONITOR WILL INITIATE PT/OT ORDERED
[2017-07-19] MEDS: ESCITALOPRAM OXALATE 10 MG TABLET PO SCH (08:12)
[2017-07-19] MEDS: ONDANSETRON HCL 4 MG TABLET PO SCH ×2 (08:12→16:37)
[2017-07-19] MEDS: ASPIRIN 81 MG TAB.CHEW PO SCH (08:12)
[2017-07-19] MEDS: SUCRALFATE 1 G TABLET PO SCH ×4 (08:12→21:15)
[2017-07-19] MEDS: LOSARTAN POTASSIUM 25 MG TABLET PO SCH (08:13)
[2017-07-19] MEDS: INSULIN REGULAR, HUMAN 300 UNIT/3 ML VIAL SQ PRN ×3 (11:30→21:29)
--- NOTE | 2017-07-19 12:00 | NUR ---
SEEN BY DR JENKINS WITH ORDERS, PHYSICAL THERAPY INITIATED SEE NOTES
--- NOTE | 2017-07-19 15:59 | NUR ---
BILATERAL CAROTID US COMPLETED SEE RESULTS IN CHART
[2017-07-19] MEDS: TRAZODONE 50 MG TABLET PO SCH (17:08)
[2017-07-19] MEDS: SIMVASTATIN 10 MG TABLET PO SCH (21:15)
--- NOTE | 2017-07-19 23:57 | NUR ---
Transfused 1 unit PRBC, patient tolerated well, no signs of transfusion reaction noted w/ stable Vital signs.
[2017-07-20 05:00] VITALS: BP 122/56
[2017-07-20] MEDS: BLOOD SUGAR DIAGNOSTIC 1 EACH STRIP VI SCH ×2 (06:39→11:20)
[2017-07-20] MEDS: INSULIN REGULAR, HUMAN 300 UNIT/3 ML VIAL SQ PRN ×2 (08:11→11:32)
[2017-07-20] MEDS: SUCRALFATE 1 G TABLET PO SCH ×2 (08:11→14:15)
[2017-07-20] MEDS: ASPIRIN 81 MG TAB.CHEW PO SCH (08:12)
[2017-07-20] MEDS: ESCITALOPRAM OXALATE 10 MG TABLET PO SCH (08:12)
[2017-07-20] MEDS: ONDANSETRON HCL 4 MG TABLET PO SCH (08:12)
[2017-07-20] MEDS: LOSARTAN POTASSIUM 25 MG TABLET PO SCH (08:14)
[2017-07-20 08:43] LABS: BASOPHILS % (AUTO) 0.2 % (0.0-2.0); LYMPHOCYTES % (AUTO) 34.5 % (20.5-51.5); MEAN CORPUSCULAR HEMOGLOBIN 31.3 UUG (27.0-31.0); MEAN CORPUSCULAR HGB CONC 33 g/dL (32.0-37.0); MEAN CORPUSCULAR VOLUME 96.2 FL (81.0-99.0); MONOCYTES # (AUTO) 0.7 K/UL (0.1-1.30); MONOCYTES % (AUTO) 25.5 % (0.0-11.0); NEUTROPHILS # (AUTO) 1.2 K/UL (1.8-8.9); NEUTROPHILS % (AUTO) 38.8 % (38.5-71.5); PLATELET COUNT (AUTO) 167 K/UL (150-450); WHITE BLOOD COUNT (AUTO) 2.9 K/UL (4.0-11.2)
[2017-07-20 08:49] LABS: RED BLOOD CELL COUNT(AUTO) 3.09 MIL/UL (4.2-5.4)
[2017-07-20 08:50] LABS: HEMATOCRIT 29.7 % (37-47); HEMOGLOBIN 9.7 G/DL (12.0-16.0)
[2017-07-20 11:11] VITALS: BP 113/46
[2017-07-20 12:01] LABS: BAND % (MANUAL) 3 % (0-10); EOSINOPHILS % (MANUAL) 2 % (0-8); LYMPHOCYTES % (MANUAL) 33 % (20-40); METAMYELOCYTES % 1 % (0-1); MONOCYTES % (MANUAL) 22 % (2-10); NEUTROPHILS % (MANUAL) 36 % (42-75)
[2017-07-20 15:06] VITALS: BP 118/54
--- NOTE | 2017-07-20 16:45 | NUR ---
Patient discharged to acute rehab at this time. Patient in no noted distress. Report given to Sushma. Patient air mattress is noted warm to touch, which is why patient temp a little elevated. Rn aware and will order new mattress. Bass Viol Repairer notified as well. Med reconciliation sent with patient. Patient stable.
== END 2017-07-20 16:30 | DRG 69 ==
LOC: ER 10:11 → TELE 11:15 → MED 07-19 12:00
PROC: 30233N1 Transfusion of Nonautologous Red Blood Cells into Peripheral Vein, Percutaneous Approach (ICD-10-PCS; principal; 2017-07-19)
DX: G45.9 Transient cerebral ischemic attack, unspecified (principal); E11.22 Type 2 diabetes mellitus with diabetic chronic kidney disease; N18.3 Chronic kidney disease, stage 3 (moderate); I25.10 Atherosclerotic heart disease of native coronary artery without angina pectoris; I25.2 Old myocardial infarction; D64.9 Anemia, unspecified; K21.9 Gastro-esophageal reflux disease without esophagitis; Z96.641 Presence of right artificial hip joint; I12.9 Hypertensive chronic kidney disease with stage 1 through stage 4 chronic kidney disease, or unspecified chronic kidney disease
CPT/HCPCS: 36415; 70030-TC; 80307; 84443; 85025; 85651; 85730; 86850; 86900; 86901; 86920; 92523; 92526; 92610; 93880; 97110; A4663; C1758; J1815; J7050; P9016-BL; P9021; Q0162